=== PATIENT | female | born 1980 | race Two or more races ===

== ENCOUNTER 2017-03-01 21:27 | Emergency (ER) | payer MEDICAID, MEDICARE ==
[~2017-03-01] VITALS: Ht 160 cm; Wt 90.3 kg
[~2017-03-01 21:27] MED LIST: HYDR-3240 PO; IBUP-1222 PO
[2017-03-01 21:31] VITALS: BP 125/86
[2017-03-01] MEDS ORDERED: LIDOCAINE 1%, 20ML ONE (21:58)
[2017-03-01] MEDS ORDERED: LIDOCAINE 1%, 20ML SQ ONE (22:00)
== END 2017-03-01 22:28 | disposition home or self-care (01) ==
LOC: ED 22:22
DX: L02.413 Cutaneous abscess of right upper limb (principal); H60.92 Unspecified otitis externa, left ear; Z88.0 Allergy status to penicillin
CPT/HCPCS: 10060

== ENCOUNTER 2020-02-09 01:45 | Emergency (ER) | payer MEDICARE, MEDICAID ==
[~2020-02-09] VITALS: Ht 152.4 cm; Wt 97.0 kg
--- NOTE | 2020-02-09 02:10 | NUR ---
ALIREZA BOYD AT BEDSIDE TO ASSESS PT
[2020-02-09] MEDS ORDERED: KETOROLAC 30 MG/1 ML ONE (02:28)
[2020-02-09] MEDS ORDERED: METHOCARBAMOL 750 MG TABLET ONE (02:28)
[2020-02-09] MEDS ORDERED: KETOROLAC 30 MG/1 ML IM ONE (02:30)
[2020-02-09] MEDS ORDERED: METHOCARBAMOL 750 MG TABLET PO ONE (02:30)
--- NOTE | 2020-02-09 02:34 | NUR ---
PT MEDICATED PER MAR
--- NOTE | 2020-02-09 02:37 | NUR ---
TECH AT BEDSIDE FOR EKG AT THIS TIME
[2020-02-09 02:43] LABS: BASOPHILS # (AUTO) 0.03 x10^3/uL (0-0.1); BASOPHILS % (AUTO) 0 % (0-1); EOSINOPHILS % (AUTO) 4 % (1-7); LYMPHOCYTES # (AUTO) 2.32 x10^3/uL (1-3.4); LYMPHOCYTES % (AUTO) 28 % (22-44); MD NO; MEAN CORPUSCULAR HEMOGLOBIN 29.8 pg (27.0-34.8); MEAN CORPUSCULAR HGB CONC 33.8 g/dL (32.4-35.8); MEAN CORPUSCULAR VOLUME 88.1 fL (80-100); MEAN PLATELET VOLUME 9.1 fL (7.4-10.4); MONOCYTES # (AUTO) 0.55 x10^3/uL (0.2-0.8); MONOCYTES % (AUTO) 7 % (2-9); NEUTROPHILS # (AUTO) 5.11 x10^3/uL (1.8-6.8); NEUTROPHILS % (AUTO) 62 % (42-75); PLATELET COUNT 271 x10^3/uL (130-400); RED BLOOD COUNT 4.85 x10^6/uL (3.82-5.3); RED CELL DISTRIBUTION WIDTH 14.3 % (9.6-15.2)
[2020-02-09 02:58] LABS: ALBUMIN 3.6 g/dL (3.4-5.0); ANION GAP 7 mmol/L (5-15); CALCIUM 8.3 mg/dL (8.5-10.1); CHLORIDE 106 mmol/L (98-107)
[2020-02-09 03:04] LABS: ALANINE AMINOTRANSFERASE 39 U/L (12-78); ALKALINE PHOSPHATASE 102 U/L (45-117); BILIRUBIN,TOTAL 0.2 mg/dL (0.2-1.0); CREATININE 0.75 mg/dL (0.55-1.02); TOTAL PROTEIN 8.3 g/dL (6.4-8.2); TROPONIN I < 0.015 ng/mL (0.000-0.045)
--- NOTE | 2020-02-09 03:08 | NUR ---
PT BACK FROM CT
--- NOTE | 2020-02-09 03:43 | NUR ---
URINE SENT TO LAB
[2020-02-09 04:03] LABS: MICROSCOPIC INDICATED
[2020-02-09 05:26] VITALS: BP 120/82
--- NOTE | 2020-02-09 05:27 | NUR ---
Patient/Caregiver given discharge instructions and they have confirmed that they understand the instructions. Patient ambulatory with steady gait.
== END 2020-02-09 05:28 | disposition home or self-care (01) ==
LOC: ED 03:56
DX: S39.012A Strain of muscle, fascia and tendon of lower back, initial encounter (principal); R10.12 Left upper quadrant pain; R10.32 Left lower quadrant pain; G89.29 Other chronic pain; R94.31 Abnormal electrocardiogram [ECG] [EKG]; X58.XXXA Exposure to other specified factors, initial encounter; Y93.89 Activity, other specified; Y92.89 Other specified places as the place of occurrence of the external cause; Y99.8 Other external cause status
CPT/HCPCS: 36415; 74176; 80053; 81001; 84484; 84703; 85025; 87086; 93005; 96372; 99285; J1885

== ENCOUNTER 2020-11-06 17:54 | Emergency (ER) | payer MEDICARE, MEDICAID ==
[~2020-11-06] VITALS: Ht 152.4 cm; Wt 97.1 kg
[~2020-11-06 17:54] MED LIST changes: +HYDR-1067 PO; -HYDR-3240 PO
--- NOTE | 2020-11-06 18:26 | NUR ---
[employer]IST RELIEF/BREAK NURSE: PT AMBULATORY TO ROOM FROM LOBBY WITH STEADY GAIT WITH SHAFT HEADMAN AT THIS TIME
[2020-11-06] MEDS ORDERED: OXYcodone/APAP 5/325MG TABLET ONE (19:38)
[2020-11-06] MEDS ORDERED: LIDOCAINE-MPF 1%, 5ML ONE (19:38)
--- NOTE | 2020-11-06 19:43 | NUR ---
TASK RN: PT RESTING ON GURNEY. FLORES. MEDICATED PER NOV.
[2020-11-06] MEDS ORDERED: LIDOCAINE-MPF 1%, 5ML INFIL ONE (20:00)
[2020-11-06] MEDS ORDERED: OXYcodone/APAP 5/325MG TABLET PO ONE (20:00)
[2020-11-06 21:12] VITALS: BP 159/96
== END 2020-11-06 21:27 | disposition home or self-care (01) ==
LOC: ED 21:15
DX: K04.7 Periapical abscess without sinus (principal)
CPT/HCPCS: 64400; 99284

== ENCOUNTER 2021-04-30 14:18 | Outpatient (CLI) | payer MEDICARE, MEDICAID ==
[~2021-04-30 14:18] MED LIST changes: -HYDR-1067 PO; +HYDR-2214 PO
== END 2021-04-30 23:59 | disposition home or self-care (01) ==
LOC: CFH 14:18
PROVIDERS: ATTEND Physician Assistant
DX: N64.4 Mastodynia (principal); N63.10 Unspecified lump in the right breast, unspecified quadrant; N63.0 Unspecified lump in unspecified breast; Z80.3 Family history of malignant neoplasm of breast
CPT/HCPCS: 76642; 77062; 77066; G0279